=== PATIENT | male | born 1995 | race Caucasian/White ===

== ENCOUNTER 2017-06-06 09:16 | Emergency (ER) | payer OTHER ==
[~2017-06-06] VITALS: Ht 188 cm; Wt 88.5 kg
[2017-06-06 09:51] VITALS: BP 122/71
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
== END 2017-06-06 10:32 | disposition home or self-care (01) ==
LOC: ER 09:16
DX: S53.402A Unspecified sprain of left elbow, initial encounter (principal); V49.49XA Driver injured in collision with other motor vehicles in traffic accident, initial encounter; Y93.89 Activity, other specified; Y99.8 Other external cause status; Y92.89 Other specified places as the place of occurrence of the external cause
CPT/HCPCS: 73080; 99284